=== PATIENT | female | born 1955 | race Caucasian/White ===

== ENCOUNTER 2021-02-02 18:30 | Emergency (ER) | payer OTHER, SELFPAY ==
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
[2021-02-02 18:30] VITALS: BP 151/74; PULSE 81; RESP 20; TEMP 36.6; O2SAT 97
[2021-02-02 19:09] VITALS: BP 131/81; PULSE 72; RESP 16; O2SAT 98
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
[2021-02-02 20:19] VITALS: BP 129/70; PULSE 65; RESP 16; O2SAT 98
== END 2021-02-02 20:19 | disposition home or self-care (01) ==
PROVIDERS: Emergency Provider Emergency Medicine; PCP Family Medicine Sports Medicine
DX: S16.1XXA Strain of muscle, fascia and tendon at neck level, initial encounter (principal); M47.812 Spondylosis without myelopathy or radiculopathy, cervical region; V89.2XXA Person injured in unspecified motor-vehicle accident, traffic, initial encounter
CPT/HCPCS: 71046; 72125; 99284

== ENCOUNTER → 2021-02-05 10:36 | Outpatient (CLI) | payer OTHER, SELFPAY ==
--- NOTE | ~2021-02-05 | DEXA_ITS ---
Bone Density Report Name: Brielle Yun Age: 65 Sex: Female Ethnicity: White Date of : 1955 Indication: postmenopausal osteoporosis; height loss; Referring Provider: NKECHI, LINDA Study: Bone densitometry was performed. Exam Date: February 05, 2021 Accession number: [id number] Bone Density: Region BMD T-score Z-score Classification AP Spine (L1-L4) 0.678 -3.4 -1.5 Osteoporosis Femoral Neck (Left) 0.648 -1.8 -0.3 Osteopenia Total Hip (Left) 0.780 -1.3 -0.1 Osteopenia Femoral Neck (Right) 0.651 -1.8 -0.2 Osteopenia Total Hip (Right) 0.750 -1.6 -0.3 Osteopenia Total Hip Mean 0.765 -1.5 -0.2 Osteopenia World Health Organization criteria for BMD impression classify patients as: Normal (T-score at or above -1.0), Osteopenia (T-score between -1.0 and -2.5), or Osteoporosis (T-score at or below -2.5). 10-year Fracture Risk: FRAX not reported because: Some T-score for Spine Total or Hip Total or Femoral Neck at or below -2.5 Previous Exams: Region Exam Age BMD T-score BMD Change BMD Change Date g/cm2 vs Baseline vs Previous AP Spine(L1-L4) 02/05/2021 65 0.678 -3.4 -0.038* -0.038* 12/04/2018 63 0.716 -3.0 Total Hip(Left) 02/05/2021 65 0.780 -1.3 -0.023 -0.023 12/04/2018 63 0.802 -1.1 Total Hip(Right) 02/05/2021 65 0.750 -1.6 -0.023 -0.023 12/04/2018 63 0.772 -1.4 *Denotes significance at 95% confidence level, LSC for AP Spine = 0.022 g/cm2, LSC for Total Hip = 0.027 g/cm2 Clinical Information Provided by Patient: Has used the following medications: Vitamin D Patient maximum height was 64 Menopause Age: 51 Drinks caffeinated beverages Onset of menses at age 13 Number of children 3 Impression: The patient has osteoporosis, based on the Total Spine T-score. The BMD for the AP Spine(L1-L4) decreased, changing by -0.038 since the last DXA exam. Discussion: INCREASED RISK OF FRACTURE. BONE DENSITY IS UNDESIRABLY LOW AT ONE OR MORE SKELETAL SITES, CONSISTENT WITH POSTMENOPAUSAL OSTEOPOROSIS. This patient's lowest T-score meets the World Health Organization's (WHO) criteria for osteoporosis at one or more sites (T-score -2.5 or below). In untreated patients, the risk of osteoporotic fracture increases approximately two-fold for each 1.0 SD decrease in T-score. Low bone density is not the only risk factor for fracture; also consider factors such as patient's age, frailty or
== END ==
PROVIDERS: Visit Provider Nurse Practitioner
DX: M81.0 Age-related osteoporosis without current pathological fracture (principal); M85.851 Other specified disorders of bone density and structure, right thigh; M85.852 Other specified disorders of bone density and structure, left thigh
CPT/HCPCS: 77080

== ENCOUNTER 2021-11-03 00:23 | Day surgery (SDC) | payer OTHER, SELFPAY ==
[2021-10-14 08:54] VITALS: BMI 23.8
[2021-11-03 08:17] VITALS: BP 132/73; PULSE 69; RESP 16; TEMP 36.2; O2SAT 99
[2021-11-03] MEDS: LACTATED RINGERS 1,000 ML 150 ML IV CONT (08:20)
--- NOTE | 2021-11-03 08:58 | P.HP_ITS ---
H&P: HPI History of Present Illness Date/Time: 11/03/21 08:58 Chief Complaint: Neoplasia screening. Narrative: This is a 66-year-old white female patient presents for screening colonoscopy. She has a history of benign colon polyp removed from the colon 5 years ago. Patient presents today for follow-up screening colonoscopy. She reports that her current weight appetite and bowel movements are normal. She denies abdominal pain. She has had no bleeding. Family history is noncontributory. ON LICENSE OF [facility] Past Medical History Medical History (Updated 11/03/21 @ 08:59 by Spencer Herzog MD) History of cataract 2017 History of melanoma Family History Family History Father Diabetes mellitus Malignant neoplasm of prostate Mother Hypertension Family history of lung cancer Social History Social History Smoking status: Never smoker Living arrangements: with family Spiritual care concerns: No Meds Home Medications and Allergies Home Medications Medication Instructions Recorded Confirmed Type ibuprofen 600 mg tablet (IBU) 600 mg PO Q6H PRN pain #20 tabs 02/02/21 11/03/21 Rx Allergies Allergy/AdvReac Type Severity Reaction Status Date / Time hydrocodone Allergy Unknown Hives Verified 11/03/21 08:15 oxycodone Allergy Unknown Hives Verified 11/03/21 08:15 thiopental Allergy Unknown RASH FROM Verified 11/03/21 08:15 SKIN CONTACT lanolin Allergy Hives Verified 11/03/21 08:15 wool Allergy Hives Verified 11/03/21 08:15 Vital Signs Vital Signs - 24 hr 11/03/21 08:17 Temperature 97.2 F L Pulse Rate 69 Respiratory Rate 16 Blood Pressure 132/73 Pulse Oximetry 99 Oxygen Delivery Room Air Exam Narrative: Physical exam reveals patient to be alert. Vital signs stable. HEENT exam is unremarkable. Patient is anicteric. Lungs are clear to auscultation and percussion. Heart is without murmur or extra sounds. Abdominal exam bowel sounds are present soft nontender with no organomegaly. Digital external rectal exam is normal. Assessment and Plan Assessment and plan (1) Encounter for screening colonoscopy: Code(s): Z12.11 - Encounter for screening for malignant neoplasm of colon Status: Acute Assessment and Plan: Patient presents today for screening colonoscopy. She has a prior history of colon polyp 5 years ago. Plan is for surveillance colonoscopy at this time. Further recommendations will be given after endoscopy.
--- NOTE | 2021-11-03 09:29 | P.PNAN_ITS ---
Anes - Initial Pre Proc Eval Procedure: Operation Date: 11/03/21 09:30 Proposed Procedures p Screening Colonoscopy - Spencer Herzog MD Date/Time: 11/03/21 09:29 Surgeon: Spencer Herzog MD Pre Op Diagnosis: neoplasm screening Patient Data Age: 66 Gender: F Height: 1.6 m Weight: 61.3 kg Last Vital Signs Temp 97.2 F L 11/03/21 08:17 Pulse 69 11/03/21 08:17 Resp 16 11/03/21 08:17 BP 132/73 11/03/21 08:17 Pulse Ox 99 11/03/21 08:17 O2 Del Method Room Air 11/03/21 08:17 Allergies Allergy/AdvReac Type Severity Reaction Status Date / Time hydrocodone Allergy Unknown Hives Verified 11/03/21 08:15 oxycodone Allergy Unknown Hives Verified 11/03/21 08:15 thiopental Allergy Unknown RASH FROM Verified 11/03/21 08:15 SKIN CONTACT lanolin Allergy Hives Verified 11/03/21 08:15 wool Allergy Hives Verified 11/03/21 08:15 Home Medications Medication Instructions Recorded Confirmed Type ibuprofen 600 mg tablet (IBU) 600 mg PO Q6H PRN pain #20 tabs 02/02/21 11/03/21 Rx Patient hx anesthesia problems: none Family hx anesthesia problems: none Results Review: All pre-operative results and documents have been reviewed as part of the pre- operative evaluation. [facility] Past Medical History Medical History (Updated 11/03/21 @ 08:59 by Spencer Herzog MD) History of cataract 2017 History of melanoma Family History Family History Father Diabetes mellitus Malignant neoplasm of prostate Mother Hypertension Family history of lung cancer Social History Social History Smoking status: Never smoker Living arrangements: with family Spiritual care concerns: No Anes - Eval Final PreProcedure Day of Procedure 11/03/21 09:29 Patient weight: normal Heart: regular rate and rhythm Lungs: clear to auscultation Airway: Mallampati scale class II Neurological: alert and oriented Last oral intake: >/= 8 hours ASA classification: II Emergent: no Anesthetic plan: proceed Anesthesia type and monitoring: general GIVS and standard monitoring Results Review: All pre-operative results and documents have been reviewed as part of the pre- operative evaluation. Informed Consent: The patient's anesthetic plan and its attendant risks and benefits were discussed with the patient/family/POA. Questions were solicited and answers provided to the satisfaction of the patient/family/POA.
[2021-11-03 09:52] VITALS: BP 115/58; PULSE 60; RESP 14; O2SAT 100
[2021-11-03 10:02] VITALS: BP 122/80; PULSE 61; RESP 12; O2SAT 100
[2021-11-03 10:12] VITALS: BP 128/62; PULSE 59; RESP 15; O2SAT 100
== END 2021-11-03 10:14 | disposition home or self-care (01) ==
PROVIDERS: PCP Family Medicine Sports Medicine; Visit Provider Internal Medicine Gastroenterology
PROC: 0DJD8ZZ Inspection of Lower Intestinal Tract, Via Natural or Artificial Opening Endoscopic (ICD-10-PCS; CPT 45378; principal; 2021-11-03 09:30)
DX: Z12.11 Encounter for screening for malignant neoplasm of colon (principal); K64.8 Other hemorrhoids; Z86.010 Personal history of colon polyps
CPT/HCPCS: 45378; J2704; J7120

== ENCOUNTER → 2022-09-30 07:42 | Outpatient (CLI) | payer OTHER, SELFPAY ==
--- NOTE | ~2022-09-30 | MMUS_ITS ---
EXAMINATION: MM diagnostic [facility] BI w oscar, US breast LT limited HISTORY: Left breast pain TECHNIQUE: Craniocaudal, mediolateral, and mediolateral oblique 3-D tomosynthesis images of the breas ts were performed and synthetic 2-D images were generated. CAD analysis was submitted and interpreted . High resolution limited left breast ultrasound was performed. COMPARISON: 01/20/2021, 01/18/2020, 11/23/2018 BREAST PARENCHYMAL COMPOSITION: The breasts are heterogeneously dense, which may obscure small masses . FINDINGS: MAMMOGRAPHIC FINDINGS: No suspicious mass, calcification, or architectural distortion are identified in either breast to sug gest malignancy. There has been no suspicious interval change. No mammographic correlate is identifie d for the patient's reported left breast pain ULTRASOUND: There is no evidence of focal abnormal solid or cystic mass in the vicinity of the patient's left kiki ast pain. IMPRESSION: 1. No specific mammographic or sonographic correlate is identified for the patient's left breast pain . Further evaluation at this time should be based on clinical assessment. Continued follow-up physica l examination is recommended. 2. Recommend routine screening mammography in one year. BI-RADS Category 1: Negative Reviewed, dictated and finalized at location A. IMPRESSION: 1. No specific mammographic or sonographic correlate is identified for the scar ent's left breast pain. Further evaluation at this time should be based on clin ical assessment. Continued follow-up physical examination is recommended. 2. Recommend routine screening mammography in one year. BI-RADS Category 1: Negative
== END ==
PROVIDERS: PCP Family Medicine Sports Medicine; Visit Provider Nurse Practitioner
DX: N64.4 Mastodynia (principal)
CPT/HCPCS: 76642; 77062; 77066; G0279

== ENCOUNTER → 2023-02-07 13:04 | Outpatient (CLI) | payer OTHER, SELFPAY ==
--- NOTE | ~2023-02-07 | DEXA_ITS ---
Bone Density Report Name: JOSEPH CORNELL Age: 67 Sex: Female Ethnicity: White Date of : 1955 Indication: postmenopausal osteoporosis; height loss; Referring Provider: NKECHI, LINDA Study: Bone densitometry was performed. Exam Date: February 07, 2023 Accession number: [id number] Bone Density: Region BMD T-score Z-score Classification AP Spine (L1-L4) 0.713 -3.0 -1.1 Osteoporosis Femoral Neck (Left) 0.642 -1.9 -0.2 Osteopenia Total Hip (Left) 0.787 -1.3 0.1 Osteopenia Femoral Neck (Right) 0.642 -1.9 -0.2 Osteopenia Total Hip (Right) 0.748 -1.6 -0.2 Osteopenia Total Hip Mean 0.768 -1.5 -0.1 Osteopenia World Health Organization criteria for BMD impression classify patients as: Normal (T-score at or above -1.0), Osteopenia (T-score between -1.0 and -2.5), or Osteoporosis (T-score at or below -2.5). 10-year Fracture Risk: FRAX not reported because: Some T-score for Spine Total or Hip Total or Femoral Neck at or below -2.5 Previous Exams: Region Exam Age BMD T-score BMD Change BMD Change Date g/cm2 vs Baseline vs Previous AP Spine(L1-L4) 02/07/2023 67 0.713 -3.0 -0.003 0.035* 02/05/2021 65 0.678 -3.4 -0.038* -0.038* 12/04/2018 63 0.716 -3.0 Total Hip(Left) 02/07/2023 67 0.787 -1.3 -0.015 0.007 02/05/2021 65 0.780 -1.3 -0.023 -0.023 12/04/2018 63 0.802 -1.1 Total Hip(Right) 02/07/2023 67 0.748 -1.6 -0.025 -0.002 02/05/2021 65 0.750 -1.6 -0.023 -0.023 12/04/2018 63 0.772 -1.4 *Denotes significance at 95% confidence level, LSC for AP Spine = 0.022 g/cm2, LSC for Total Hip = 0.027 g/cm2 Clinical Information Provided by Patient: Has used the following medications: Vitamin D Patient maximum height was 64 Menopause Age: 51 No regular weight bearing exercise Drinks caffeinated beverages Onset of menses at age 13 Number of children 3 Impression: The patient has osteoporosis, based on the Total Spine T-score. No significant bone loss was observed. Discussion: INCREASED RISK OF FRACTURE. BONE DENSITY IS UNDESIRABLY LOW AT ONE OR MORE SKELETAL SITES, CONSISTENT WITH POSTMENOPAUSAL OSTEOPOROSIS. This patient's lowest T-score meets the World Health Organization's (WHO) criteria for osteoporosis at one or more sites (T-score -2.5 or below). In untreated patients, the risk of osteoporotic fracture incre
== END ==
PROVIDERS: PCP Chiropractor; Visit Provider Nurse Practitioner
DX: Z78.0 Asymptomatic menopausal state (principal); M85.89 Other specified disorders of bone density and structure, multiple sites; M81.0 Age-related osteoporosis without current pathological fracture
CPT/HCPCS: 77080

== ENCOUNTER 2023-12-13 13:01 | Outpatient (CLI) | payer OTHER, SELFPAY ==
--- NOTE | ~2023-12-13 | MM_ITS ---
EXAMINATION: MM screening [facility] BI w oscar HISTORY: Screening TECHNIQUE: Craniocaudal and mediolateral oblique 3-D tomosynthesis images were obtained and synthetic 2-D images were generated. CAD analysis was submitted and interpreted. COMPARISON: Comparison to multiple prior studies sequentially, with oldest reviewed study dated 11/23. BREAST PARENCHYMAL COMPOSITION: Not dense: There are scattered areas of fibroglandular density. FINDINGS: There is no evidence of suspicious mass, calcification, or architectural distortion to sugg est malignancy in either breast. There has been no suspicious interval change. IMPRESSION: 1. No mammographic evidence of malignancy. 2. Recommend routine screening mammography in one year. BI-RADS Category 1: Negative Reviewed, dictated and finalized at location B.
== END 2023-12-13 13:02 ==
PROVIDERS: PCP Family Medicine; Visit Provider Nurse Practitioner
DX: Z12.31 Encounter for screening mammogram for malignant neoplasm of breast (principal)
CPT/HCPCS: 77063; 77067

== ENCOUNTER 2024-12-17 10:27 | Outpatient (CLI) | payer OTHER, SELFPAY ==
--- NOTE | ~2024-12-17 | MM_ITS ---
EXAMINATION: MM screening [facility] BI w oscar HISTORY: Screening TECHNIQUE: Craniocaudal and mediolateral oblique 3-D tomosynthesis images were obtained and synthetic 2-D images were generated. CAD analysis was submitted and interpreted. COMPARISON: Comparison to multiple prior studies sequentially, with oldest reviewed study dated 11/23. BREAST PARENCHYMAL COMPOSITION: There are scattered areas of fibroglandular density. FINDINGS: There is no evidence of suspicious mass, calcification, or architectural distortion to sug gest malignancy in either breast. IMPRESSION: 1. No mammographic evidence of malignancy. 2. Recommend routine screening mammography in one year. BI-RADS Category 1: Negative Reviewed, dictated and finalized at location B.
== END 2024-12-17 10:28 | disposition home or self-care (01) ==
PROVIDERS: PCP Family Medicine; Visit Provider Obstetrics & Gynecology Gynecology
DX: Z12.31 Encounter for screening mammogram for malignant neoplasm of breast (principal)
CPT/HCPCS: 77063; 77067